=== PATIENT | female | born 1960 | race Caucasian/White ===

== ENCOUNTER → 2017-02-15 | Outpatient (CLI) | payer BC | LOC: CIMAGING 07:50 | PROVIDERS: ATTEND Physician Assistant | DX: Z12.31 Encounter for screening mammogram for malignant neoplasm of breast (principal); B18.2 Chronic viral hepatitis C | CPT/HCPCS: 76705-PO; G0202 ==

== ENCOUNTER → 2018-03-01 | Outpatient (CLI) | payer BC | LOC: FIMAGING 09:10 | PROVIDERS: ATTEND Surgery | DX: N20.0 Calculus of kidney (principal) ==

== ENCOUNTER → 2018-03-03 | Outpatient (CLI) | payer BC | LOC: FIMAGING 13:01 | PROVIDERS: ATTEND Surgery | DX: E21.3 Hyperparathyroidism, unspecified (principal); R94.7 Abnormal results of other endocrine function studies | CPT/HCPCS: 78070; A9500; A9516 ==

== ENCOUNTER → 2018-03-06 | Outpatient (CLI) | payer BC | LOC: FIMAGING 08:38 | PROVIDERS: ATTEND Surgery | DX: R13.10 Dysphagia, unspecified (principal) ==

== ENCOUNTER → 2018-03-11 | Outpatient (CLI) | payer BC | LOC: BRMIMAGING 07:53 | PROVIDERS: ATTEND Surgery | DX: D35.1 Benign neoplasm of parathyroid gland (principal); E04.1 Nontoxic single thyroid nodule; E21.3 Hyperparathyroidism, unspecified ==

== ENCOUNTER 2018-03-21 10:25 | Observation (INO) | payer BC ==
[2018-03-21] MEDS ORDERED: ceFAZolin 2 GM/DEXTROSE 100 ML IV ONE ×2 (10:52→11:15)
[2018-03-21] MEDS ORDERED: LR 1,000 ML IV ONE (10:53)
[2018-03-21] MEDS ORDERED: THROMBIN (BOVINE) 5,000 UNIT VIAL TP ONE (13:12)
[2018-03-21] MEDS ORDERED: BUPIVACAINE 0.25% 30 ML SDV ONE (13:12)
--- NOTE | 2018-03-21 14:30 | PDHPUP ---
History & Physical Update H&P update statement: This history and physical update is based on an assessment of the patient which was completed after admission or registration (within 24 hours), but prior to the surgery/procedure. H&P update: H&P reviewed & patient examined, no change in patient's condition since H&P completed
--- NOTE | 2018-03-21 14:43 | PDANEPAE ---
ANE History of Present Illness parathyroid adenoma s/f parathyroidectomy ANE Past Medical History - Cardiovascular History Hx Hypertension: Yes Hx Arrhythmias: No Hx Chest Pain: No Hx Coronary Artery / Peripheral Vascular Disease: No Hx CHF / Valvular Disease: No Hx Palpitations: No - Pulmonary History Hx COPD: No Hx Asthma/Reactive Airway Disease: No Hx Recent Upper Respiratory Infection: No Hx Oxygen in Use at Home: No Hx Sleep Apnea: No Sleep Apnea Screening Result - Last Documented: Negative - Neurologic History Hx Cerebrovascular Accident: No Hx Seizures: No Hx Dementia: No - Endocrine History Hx Diabetes: No Endocrine History Comment: hyperparathyroid - Liver History Hx Hepatic Disorders: Yes Hepatic History Comment: Harvoni treatment for Hep C - lab work shows it is now gone as of July 2017 - Neurological & Psychiatric Hx Hx Neurological and Psychiatric Disorders: No - Cancer History Hx Cancer: No - Congenital Disorder History Hx Congenital Disorders: No - GI History Hx Gastrointestinal Disorders: Yes Gastrointestinal History Comment: mild GERD - Other Health History Other Health History: wears glasses. 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 . wisdom tooth extraction ANE Review of Systems Review of Systems: - Exercise capacity METS (RN): 4 METS ANE Patient History - Allergies Allergies/Adverse Reactions: acetaminophen [From Tylenol] Allergy (Verified 03/07/18 16:32) hx of Hep C erythromycin base Allergy (Verified 03/07/18 16:32) nausea lisinopril Allergy (Verified 03/07/18 16:33) cough naproxen Allergy (Verified 03/07/18 16:34) 'blows up like a balloon", water retention - Home Medications Home medications: home medication list seen and reviewed Home Medications: Adult One Daily Multivit Tab 03/07/18 [Last Taken 03/21/18] Advil PRN 03/07/18 [Last Taken 03/21/18] Glucosamine Chondroitin Caplet 03/07/18 [Last Taken 03/21/18] Losartan Potassium 03/07/18 [Last Taken 03/21/18] [place]-3 Fish Oil Softgel 03/07/18 [Last Taken 03/21/18] Vitamin C 03/07/18 [Last Taken 03/21/18] - NPO status NPO Status: no food or drink >8 hours NPO Since - Liquids (Date): 03/21/18 NPO Since - Liquids (Time): 09:00 NPO Since - Solids (Date): 03/20/18 NPO Since - Solids (Time): 20:00 - Anes Hx Anes Hx: no prior problems - Smoking Hx Smoking Status: Never smoked - Alcohol Use Alcohol Use: None - Family Anes Hx Family Anes Hx: none Family Hx Anesthesia Complications: none ANE Labs/Vital Signs - Vital Signs Blood Pressure: 132/74 Heart Rate: 79 Respiratory Rate: 16 O2 Sat (%): 99 Height: 157.48 cm Weight: 61.689 kg ANE Physical Exam - Airway Neck exam: FROM Mallampati Score: Class 2 Mouth exam: normal dental/mouth exam - Pulmonary Pulmonary: no respiratory distress - Cardiovascular Cardiovascular: regular rate and rhythym - ASA Status ASA Status: II ANE Anesthesia Plan Anesthesia Plan: general endotracheal anesthesia
[2018-03-21] MEDS ORDERED: REMIFENTANIL HCL 1 MG VIAL ONE (15:01)
[2018-03-21] MEDS ORDERED: fentaNYL 100 MCG/2 ML INJ ONE ×2 (15:01→17:16)
[2018-03-21] MEDS ORDERED: PROPOFOL/EMULSION 500 MG/50 ML BOTTLE IV ONE (15:02)
[2018-03-21] MEDS ORDERED: DEXAMETHASONE 4 MG/ML VIAL ONE ×2 (15:02)
[2018-03-21] MEDS ORDERED: ONDANSETRON 4 MG/2 ML VIAL ONE (15:02)
[2018-03-21] MEDS ORDERED: LIDOCAINE HCL 160 MG/4 ML LTA KIT TP ONE (15:02)
[2018-03-21] MEDS ORDERED: ROCURONIUM 50 MG/5 ML VIAL ONE (15:02)
[2018-03-21] MEDS ORDERED: LIDOCAINE 2% 100 MG/5 ML SYR ONE (15:02)
[2018-03-21] MEDS ORDERED: CEFAZOLIN 2 GM/DEXTROSE/100 ML BAG IV ONE (15:18)
[2018-03-21] MEDS ORDERED: ePHEDrine SULFATE 25 MG/5 ML SYR ONE (15:30)
[2018-03-21] MEDS ORDERED: DEXAMETHASONE 4 MG/ML VIAL IVP PRN (16:43)
[2018-03-21] MEDS ORDERED: PROMETHAZINE HCL 25 MG/ML INJ IVP PRN (16:43)
[2018-03-21] MEDS ORDERED: ALBUTEROL 3 ML DEYVIAL IH PRN (16:43)
[2018-03-21] MEDS ORDERED: LABETALOL HCL 5 MG/ML 20 ML MDV IVP PRN (16:43)
[2018-03-21] MEDS ORDERED: LR 500 ML IV PRN (16:43)
[2018-03-21] MEDS ORDERED: PHENYLEPHRINE HCL 100 MCG/ML SYR IVP PRN (16:43)
[2018-03-21] MEDS ORDERED: METOCLOPRAMIDE 10 MG/2 ML VIAL IVP PRN (16:43)
[2018-03-21] MEDS ORDERED: ONDANSETRON 4 MG/2 ML VIAL IVP PRN ×2 (16:43→17:04)
[2018-03-21] MEDS ORDERED: MEPERIDINE 25 MG/0.5 ML AMP IVP PRN (16:43)
[2018-03-21] MEDS ORDERED: NALOXONE HCL 0.4 MG/ML INJ IVP PRN (16:43)
[2018-03-21] MEDS ORDERED: oxyCODONE IR 5 MG TAB PO PRN ×2 (16:43→17:07)
--- NOTE | 2018-03-21 17:10 | POSTANESTH ---
Post Anesthetic Evaluation Cardiovascular Status: Normal, Stable Respiratory Status: Normal, Stable, Tx Decrease in SpO2 (O2 by NC) Level of Consciousness/Mental Status: Can Participate in Eval Pain Control: Adequate, Prn Tx Ordered Nausea/Vomiting Control: Adequate, Prn Tx Ordered Complications Possibly Related to Anesthesia: None Noted
--- NOTE | 2018-03-21 17:12 | POSTOPPROG ---
Post Op Note Date of Operation: 03/21/18 Surgeon: Rico Burk (, FACS) Supervisor [employer]: Mohini Bob PA-C Anesthesiologist: Bhupinder Lemons MD Anesthesia: GET(General Endotracheal) Pre-op Diagnosis: hyperparathyroidism Procedure: parathyroidectomy Findings: 264 mg adenoma right uppper pole Inf/Abcess present in the surg proc area at time of surgery?: No EBL: Minimal (5ml) Specimen(s): right inferior and right superior parathyroids
[2018-03-21] MEDS ORDERED: oxyCODONE IR 5 MG TAB ONE (17:16)
[2018-03-21] MEDS: fentaNYL 100 MCG/2 ML INJ IVP PRN ×3 (17:18→17:38)
[2018-03-21] MEDS: CALCIUM CARBONATE 500 MG CHEWABLE TAB PO SCH (21:41)
--- NOTE | 2018-03-22 04:48 | GOP ---
DATE OF OPERATION: SURGEON: Rico Burk MD RATE SETTER: Thea Bob PA-C. ANESTHESIA: General endotracheal. ANESTHESIOLOGIST: Bhupinder Lemons MD. PREOPERATIVE DIAGNOSIS: 1. Hyperparathyroidism. 2. Osteoporosis. POSTOPERATIVE DIAGNOSIS: 1. Hyperparathyroidism. 2. Osteoporosis. PROCEDURE PERFORMED: Parathyroidectomy. FINDINGS: Normal right inferior pole parathyroid gland and right upper pole parathyroid adenoma weig siddharth 264 mg. A small benign-appearing left lower pole thyroid nodule previously seen on ultrasound. ESTIMATED BLOOD LOSS: 25 mL or less. DESCRIPTION OF PROCEDURE: After informed consent was obtained, the patient was brought to the operat ing room and placed under general anesthesia. Both arms were tucked. All pressure points were padde d. The neck was prepped and draped in the usual sterile fashion. Before proceeding, a time-out and identification of the patient was performed. A preoperative intact PTH was measured at 176.9. The planned incision site was infiltrated with 0.25% Marcaine incised between the medial aspect of th e sternocleidomastoid muscles and dissection carried through the skin and subcutaneous tissues, and p latysma layer. Dissection was carried out cephalad to the cricothyroid and inferiorly to the suprast ernal notch. Strap muscles were mobilized in the midline and the right thyroid explored. The gland was rotated medially and dissection was carried out in the inferior pole region where the preoperativ e imaging studies indicated a possible adenoma. On the capsule of the thyroid, the inferior pole gla nd was identified and appeared mildly enlarged. This was dissected from the underlying capsule. The blood supply was dispatched and the gland was removed from the field and submitted for frozen sectio n as well as permanent section. Subsequent dissection of the superior pole revealed the true adenoma , which was considerably larger in size and was overlying the recurrent laryngeal nerve as well as th e ligament of Ba. This gland was dissected. Its blood supply was taken down using the Harmonic S calpel. It was also detached and submitted for frozen section. The 2nd gland submitted was a 264 mg hypercellular parathyroid consistent with adenoma. The 1st gland appeared to represent parathyroid tissue that had been submitted in formalin and will defer to permanent section. Rapid PTH levels wer e drawn at 10 and 20 minutes after removal of the 2nd gland. The first level dropped from 176 to 121 . The 2nd level was 60.9. We proceeded to close the neck after hemostasis was inspected. The opera tive field appeared hemostatic. While we were waiting for the results of the frozen section, we had dissected out the left lower pole and identified a small nodule that was seen on ultrasound that appeared benign. This was left undis turbed. Returning to the closure, the strap muscles were approximated in the midline with interrupted 3-0 Daryn ryl suture. The subcutaneous tissues were approximated with 3-0 Vicryl suture and the skin closed wi th 4-0 Monocryl suture in a subcuticular fashion. Topical Dermabond was applied. Patient was return ed extubated to the recovery in satisfactory condition. Needle, sponge, and instrument counts devante orr. COMPLICATIONS: None. /[id number]/MODL
[2018-03-22 08:10] VITALS: BP 109/63
[2018-03-22] MEDS: CALCIUM CARBONATE 500 MG CHEWABLE TAB PO SCH (08:16)
--- NOTE | 2018-03-22 08:35 | ASMTCMCOM ---
CM Note CM Note Notes: Patient admitted for a Parathyroidectomy on 03/21. Lives at home with family. No needs anticipated at this time. CM available should something change. Plan: Likely Independent Date Signed: 03/22/2018 08:34 AM Electronically Signed By:Carey Duggan RN
[2018-03-22] MEDS ORDERED: ENOXAPARIN 40 MG/0.4 ML SYR SC SCH (09:00)
[2018-03-22] MEDS ORDERED: CALCITRIOL 0.25 MCG CAP PO SCH (09:15)
[2018-03-22] MEDS ORDERED: LOSARTAN POTASSIUM 50 MG TAB PO SCH (10:00)
--- NOTE | 2018-03-22 10:14 | PDDCSUM ---
Discharge Summary Discharge Summary: #[id number] CYNTHIA Burk MD, FACS
--- NOTE | 2018-03-22 10:23 | ASDISCHSUM ---
Discharge Information Plan Status:Home with No Needs Medically Cleared to Leave: Discharge Date: CM D/C Disposition:Home, Routine, Self-Care ADT D/C Disposition: Projected Discharge Date: Transportation at D/C:Family Discharge Delay Reason: Follow-Up Date: Discharge Slot: Final Diagnosis: Placement Information Patient Contact Information Contact Name:LILIAN Relationship: Address:[address] [place] [address] City:[place] Alternate Phone: [facility]/Zip Code:[place] [address] Email: Financial Information Financial Class:BCOP Primary Plan Desc:BC OUT OF STATE PPO Primary Plan Number:[id number] Secondary Plan Desc: Secondary Plan Number: Assessment Information LACE LACE Length of stay for Answers: Less than 1 day current admission Acuity / Level of Answers: No Care: Did the patient have an inpatient admission? Comorbidities - select Answers: Other Notes: Osteoperosis, Hyperthyr oid all that apply ism # of Emergency department Answers: 0 visits in the last 6 months Score: 1 Date Signed: 03/22/2018 10:22 AM Electronically Signed By:Christianne Haley [facility] CM Progress Note CM Note CM Note Notes: Patient admitted for a Parathyroidectomy on 03/21. Lives at home with family. No needs anticipated at this time. CM available should something change. Plan: Likely Independent Date Signed: 03/22/2018 08:34 AM Electronically Signed By:Carey Duggan RN Intervention Information
--- NOTE | 2018-03-22 14:20 | GDS ---
DISCHARGE DIAGNOSES: 1. Hyperparathyroidism. 2. Osteoporosis. 3. Hypertension. PROCEDURE PERFORMED: 03/21/2018 parathyroidectomy. HOSPITAL COURSE: For details of admission history and physical, please see dictated summary. Briefl y, the patient is a 57-year-old female with hyperparathyroidism and osteoporosis, admitted for parath yroidectomy. Preoperative imaging showed the parathyroid adenoma to be in the right lower pole regio n. It was found in the right upper pole region and weighed 264 mg. Intraoperative PTH levels droppe d appropriately. Her calcium postoperatively was 11.1 and the following morning was 9.2, with the PT H dropping from 179 to 9.5. The patient's phosphorus on the morning after surgery was 5.1. She was started on calcitriol 0.25 mcg p.o. q. day and calcium carbonate 500 mg three times daily to be shabbir nued for the next 30 days with outpatient monitoring of her calcium and PTH levels. At the time of d ischarge, she was afebrile and ambulatory, her incision healing well without sign of infection. She was advanced in her diet. Her voice was normal postoperatively. CONDITION AT TIME OF DISCHARGE: Satisfactory. FOLLOWUP: Arranged in my office this coming week. The patient also has a prescription for Oxy IR at home as needed for pain. DISCHARGE MEDICATIONS: Include calcitriol 0.25 mcg p.o. q. day, #30. Calcium carbonate 500 mg p.o. t.i.d., #90. Oxy IR 5-10 mg q.4 hours p.r.n. (patient has Rx at home). The patient will resume losa rtan 50 mg p.o. q. day, ibuprofen 400 mg to 600 mg p.o. q.6 hours p.r.n. pain or headache, multivitam ins and herbal supplements. /[id number]/MODL
== END 2018-03-22 11:27 | disposition home or self-care (01) ==
LOC: F3E 10:25
PROVIDERS: ADMIT Surgery; ATTEND Surgery
PROC: 0GTL0ZZ Resection of Right Superior Parathyroid Gland, Open Approach (ICD-10-PCS; principal; 2018-03-21 13:15)
PROC: 0GTN0ZZ Resection of Right Inferior Parathyroid Gland, Open Approach (ICD-10-PCS; principal; 2018-03-21 13:15)
DX: E21.3 Hyperparathyroidism, unspecified (principal); D35.1 Benign neoplasm of parathyroid gland; E04.1 Nontoxic single thyroid nodule; M81.0 Age-related osteoporosis without current pathological fracture; I10 Essential (primary) hypertension; R13.10 Dysphagia, unspecified; R10.9 Unspecified abdominal pain; K44.9 Diaphragmatic hernia without obstruction or gangrene; Z86.19 Personal history of other infectious and parasitic diseases
CPT/HCPCS: 60500; G0378; J0690; J1100; J1650; J2001; J2405; J2704; J3010

== ENCOUNTER → 2018-03-26 | Outpatient (CLI) | payer BC | LOC: BRMIMAGING 11:13 | PROVIDERS: ATTEND Family Medicine | DX: Z12.31 Encounter for screening mammogram for malignant neoplasm of breast (principal) ==